=== PATIENT | male | born 1975 | race Two or more races ===

== ENCOUNTER 2017-01-31 22:45 | Inpatient (IN) | payer BC ==
[~2017-01-31] VITALS: Ht 170.2 cm; Wt 78.5 kg
[~2017-01-31 22:45] MED LIST: [UNRECOGNIZED DRUG - REMARK]
--- NOTE | 2017-01-31 22:50 | NUR ---
Patient observed to fall to the floor by car rental clerk who notified nursing staff. Staff responded to the waiting area where patient was initially assessed and determined to be breathing with good circulation. As initial assessment was being performed patient awoke and stated "I'm OK guys" and lost consciousness again. Patient assisted to wheelchair and to room 1B.
[2017-01-31] MEDS ORDERED: ASPIRIN 325 MG TABLET PO ONE (23:15)
[2017-01-31] MEDS ORDERED: NITROGLYCERIN OINT 1 GM PACKET TP ONE ×2 (23:15→23:30)
--- NOTE | 2017-01-31 23:15 | NUR ---
Pt to room via w/c and placed on monitor. Pt NSR. Pt c/o severe midsternal chest pain radiating down to abd and severe headache. Pt sts [place] when he "passed out" and "eyes rolled back in my head". EKG obtained, IV established, labs drawn and sent. Pt seen by Dr. Lawson for MSE, awaiting further orders.
[2017-01-31] MEDS ORDERED: MORPHINE SULFATE 4 MG/1 ML DISP.SYRIN IV ONE (23:30)
[2017-01-31] MEDS ORDERED: ONDANSETRON IV *ER 4 MG/2 ML VIAL IV ONE (23:30)
[2017-01-31] MEDS ORDERED: ONDANSETRON 4 MG/2 ML VIAL ONE (23:46)
[2017-01-31] MEDS ORDERED: MORPHINE SULFATE 4 MG/1 ML DISP.SYRIN ONE (23:46)
[2017-01-31 23:47] LABS: CREATININE 2.1 mg/dL (0.6-1.3); POTASSIUM 3.1 mmol/L (3.5-5.1)
--- NOTE | 2017-01-31 23:50 | NUR ---
Pt initially requested no visitor and that no one knew he was here. arrived in wr. Pt initially did not want her at bedside then changed his mind and brought back to pt's bedside. Pt medicated for discomfort, will monitor for effects of medication. Pt asked repeatedly for water, approved, pt given water. Bedside CXR obtained. Pt refusing head CT. Dr. Lawson notified. Pt repositioned for comfort.
[2017-01-31 23:52] LABS: BASOPHILS % (AUTO) 0.2 % (0.0-2.0); EOSINOPHILS # (AUTO) 0.1 K/uL (0.0-0.7); EOSINOPHILS % (AUTO) 1.1 % (0.0-7.0); HEMATOCRIT 42.1 % (40-50); LYMPHOCYTES # (AUTO) 1.4 K/UL (0.8-4.8); LYMPHOCYTES % (AUTO) 11.5 % (20.5-51.5); MEAN CORPUSCULAR HGB CONC 33 g/dL (32.0-37.0); MEAN CORPUSCULAR VOLUME 90.5 FL (82.0-92.0); MONOCYTES # (AUTO) 0.6 K/UL (0.1-1.30); MONOCYTES % (AUTO) 4.9 % (0.0-11.0); NEUTROPHILS # (AUTO) 10.1 K/UL (1.8-8.9); NEUTROPHILS % (AUTO) 82.3 % (38.5-71.5); PLATELET COUNT (AUTO) 156 K/UL (150-450); RED BLOOD CELL COUNT(AUTO) 4.66 MIL/UL (4.7-6.1); WHITE BLOOD COUNT (AUTO) 12.2 K/UL (4.0-11.2)
--- NOTE | 2017-01-31 23:55 | NUR ---
Dr. Lawson into speak with pt. Pt now agrees to head CT. Radiology notified.
[2017-02-01] VITALS (49 sets, daily range): BP systolic 95–150; BP diastolic 58–101
[2017-02-01 00:02] LABS: ETHANOL < 3 MG/DL (0-0)
--- NOTE | 2017-02-01 00:12 | NUR ---
Pt to radiology via shannen
[2017-02-01] MEDS ORDERED: NITROGLYCERIN IV 250 ML ONE (00:38)
[2017-02-01] MEDS ORDERED: POTASSIUM CHLORIDE 50 ML ONE ×2 (00:39→02:17)
[2017-02-01] MEDS ORDERED: HEPARIN SODIUM,PORCINE/PF 100 UNIT/ML, 5ML SYR IV STA (00:40)
--- NOTE | 2017-02-01 00:50 | NUR ---
Pt returned from CT via gurney. Remains NSR on monitor, resp even and unlabored. Conts to c/o 09/03 CP. Aspirin given per Dr. Lawson (initially held per Dr. Lawson's request until head CT obtained). Pt resting in position of comfort for self. Plan of care is to admit pt at this time
[2017-02-01] MEDS ORDERED: HEPARIN/D5W DRIP 500 ML IV STA (00:56)
[2017-02-01] MEDS: POTASSIUM CHLORIDE 50 ML IV SCH ×2 (00:59→02:00)
--- NOTE | 2017-02-01 00:59 | NUR ---
[facility]
--- NOTE | 2017-02-01 01:03 | NUR ---
[facility] spoke with Dr. Kennedy, on-call CARDIOLOGY.
[2017-02-01] MEDS ORDERED: ASPIRIN 325 MG TABLET ONE (01:04)
[2017-02-01] MEDS: NITROGLYCERIN IV 250 ML IV PRN ×3 (01:10→02:00)
[2017-02-01] MEDS ORDERED: IV NORMAL SALINE 500 ML BAG IV ONE (01:15)
--- NOTE | 2017-02-01 01:15 | NUR ---
Second IV established. Nitro paste removed and IV nitro infusion started, will monitor for effects of medication. Potassium infusing in second IV, pt tolerating well. Pt remains NSR on monitor. Resp even and unlabored. Sts chest discomfort is 4/10.
[2017-02-01] MEDS ORDERED: IV NS 1000 ML 1,000 ML IV PRN (01:17)
[2017-02-01] MEDS ORDERED: METOPROLOL TARTRATE 50 MG TABLET PO SCH ×2 (01:30→09:00)
[2017-02-01] MEDS ORDERED: NITROGLYCERIN IV 250 ML IV PRN ×2 (01:30→10:00)
[2017-02-01] MEDS ORDERED: MORPHINE SULFATE 2 MG/1 ML DISP.SYRIN IV PRN (01:30)
[2017-02-01] MEDS ORDERED: HEPARIN/D5W DRIP 500 ML IV PRN (01:30)
[2017-02-01] MEDS ORDERED: ONDANSETRON 4 MG/2 ML VIAL IV PRN (01:30)
[2017-02-01] MEDS ORDERED: HEPARIN SODIUM,PORCINE 5,000 UNITS/ML VIAL ONE (01:36)
[2017-02-01] MEDS ORDERED: HEPARIN/D5W DRIP 500 ML ONE (01:36)
--- NOTE | 2017-02-01 01:45 | NUR ---
No change in chest pain at this time, nitro drip increased to 15mcg. Pt remains NSR on monitor.
--- NOTE | 2017-02-01 01:47 | NUR ---
3rd IV established. Heparin bolus given and heparin drip started. Per Dr. Lawson pt to receive 1000 u/hr. Both medications double checked by VICENTA Zarate.
--- NOTE | 2017-02-01 02:00 | NUR ---
Pt c/o cp increasing to 6/10. Nitro drip increased to 20 mcg. Pt NSR on monitor, resp even and unlabored on 2 L NC. Pt admitted to CCU but will be held in ER. Report given to VICENTA Batista. Upon transfering care pt has nitro infusing in 20g R. AC at 20 mcg/hr, second bag of potassium infusing in 18g L. JAMES and heparin drip 1000 U/hr (per Dr. Lawson) in 18g L. AC.
--- NOTE | 2017-02-01 02:00 | NUR ---
Admit to ICU status. Patient remains in ED 1B as overflow
--- NOTE | 2017-02-01 03:00 | NUR ---
2nd bag KCl continued from ER now completed at this time.
[2017-02-01] MEDS: ASPIRIN 81 MG TAB.CHEW PO SCH ×2 (03:08→09:00)
--- NOTE | 2017-02-01 03:08 | NUR ---
Non-admin aspirin. Recent dose given in ER. Non-admin Lopressor due to administration of Nitro drip, titrating rate up at this time. Close BP monitoring.
--- NOTE | 2017-02-01 05:54 | NUR ---
Dr. Schwab at bedside for assessment. Updates given
[2017-02-01] MEDS ORDERED: ACETAMINOPHEN 325 MG TABLET PO PRN (06:00)
[2017-02-01] MEDS ORDERED: ACETAMINOPHEN 325 MG TABLET ONE (06:18)
--- NOTE | 2017-02-01 06:45 | NUR ---
Patient to be transferred to CCU1. Transport with ACLS protocol
--- NOTE | 2017-02-01 07:14 | NUR ---
received pt from ER DX: CHEST PAIN .pt alert ,awake and oriented . pt on nitroglycerine drip and heparin drip .no chest pain when asked but as per pt he has a headache as per ER NURSE pt had tylenol and not due yet .place pt in bed and icu monitor place and icu orientation done .continue to monitor vital sign and levels of comfort.
--- NOTE | 2017-02-01 08:10 | NUR ---
DR:NANCY CAME AND REPORT GIVEN TO MD . WITH ORDERS . AT BEDSIDE .MD SPOKED TO PTS AND PTS WITH REGARDS TO PLAN OF TREATMENT FOR NOEL
--- NOTE | 2017-02-01 08:30 | NUR ---
heparin drip stop as per YOHAN prior to NOEL.
[2017-02-01] MEDS ORDERED: BENZOCAINE 20% TOPICAL SPRAY 59.2 ML MM ONE (08:45)
[2017-02-01] MEDS ORDERED: MIDAZOLAM HCL 2 MG/2 ML VIAL IV PRN (08:45)
[2017-02-01] MEDS ORDERED: FENTANYL CITRATE 100 MCG/2 ML AMPUL IV PRN (08:45)
--- NOTE | 2017-02-01 08:50 | NUR ---
: YOGI CAME AND EVALUATED PT SPOKE WITH PT AND PTS .
[2017-02-01 09:06] LABS: CREATININE 1.7 mg/dL (0.6-1.3); POTASSIUM 3.5 mmol/L (3.5-5.1)
--- NOTE | 2017-02-01 09:10 | NUR ---
COMPLAINES OF HEADACHE AND TYLENOL NOT DUE YET DR MER AWARE NITROGLYCERINE DRIP REDUCED TO 30 MCG/MIN.CONTINUE TO MONITOR VITAL SIGNS AND LEVELS OF COMFORT.
--- NOTE | 2017-02-01 09:30 | NUR ---
DR NOWAK at bedside came and spoke with pts and explained NOEL procedure for sedation .consent sign by pt and witness .
--- NOTE | 2017-02-01 09:39 | NUR ---
NOEL PROCEDURE START TIME AND ENDED AT 954
[2017-02-01] MEDS: ESMOLOL 2.5 GM/NS 250 ML DRIP 250 ML IV PRN ×2 (10:00→14:24)
--- NOTE | 2017-02-01 10:10 | NUR ---
SALEEM AND Gisel at bedside spoke with pts and pts plan for transfer pt needs surgical intervention.
--- NOTE | 2017-02-01 10:15 | NUR ---
At this time with nursing supervisor specialty plant and intensive care unit nurse present in the unit a call sent to CNO Mr. Dallas Ambrocio with questions regarding legal coverage for ICU nurses during transportation. As stated by him "we are legally covered during transportation of patient to [facility].
--- NOTE | 2017-02-01 11:28 | NUR ---
no urinary output since 0600 :LYNN made aware no orders .
--- NOTE | 2017-02-01 11:30 | NUR ---
pt no urinary output last void is at 0600 ,informed DR:NANCY .no orders made and to continue to monitor output.
--- NOTE | 2017-02-01 11:43 | NUR ---
Patient medicated with dilaudid. Refusing morphine despite been educated on the benefits of morphine.
[2017-02-01] MEDS ORDERED: HYDROMORPHONE 1 MG/1 ML DISP.SYRIN IV ONE (11:45)
[2017-02-01] MEDS ORDERED: [UNRECOGNIZED DRUG - CODE] IV (11:59)
[2017-02-01] MEDS ORDERED: METO50TA3 PO (11:59)
[2017-02-01] MEDS ORDERED: HYDR1DIS2 IV (11:59)
[2017-02-01] MEDS ORDERED: ACET325T53 PO (11:59)
[2017-02-01] MEDS ORDERED: Morphine Sulfate Inj IV (11:59)
[2017-02-01] MEDS ORDERED: [UNRECOGNIZED DRUG - CODE] IV (11:59)
--- NOTE | 2017-02-01 12:25 | NUR ---
report given to Arabella HORN precept tel# [phone]. no bed available will continue to monitor bed availability.
--- NOTE | 2017-02-01 13:34 | NUR ---
a call from Hemant from [facility] pt have a bed bed release 7 ICU 1673.CALL BACK TEL # [phone]
--- NOTE | 2017-02-01 14:15 | NUR ---
Ambulance transfer services in the unit, and in preparation for transfer they were questioned regarding intubation equipment and if they were ACLS transport. the response was not. Nursing extension service supervisor in the unit and notified, as well as case management.
--- NOTE | 2017-02-01 14:37 | NUR ---
Called the following facilities for the transfer: 09:53 Delfin from [facility] [ ] stated that they do not have the resources for an open heart surgery and have no ICU beds available. 09:56 Called [facility] [ ] but they stated that they do not do open heart surgery. 09:58 Called [facility] [ ; ] and Caro requested for the patient's information to be faxed to them. 09:59 Spoke to Malissa from [facility] [ ; ] and she requested the patient's info. to be faxed 10:[address] Gutierrez about the situation and he stated that he will order the discharge and do his D/C Summary 10:10 Called admitting, Donald eBe, to ask for the contact number for Scottie Nevarez/[facility] - 10:13 [facility] was called and presented the case to them. 10:15 Called [facility] [ ] and was redirected to but the call was dropped 10:26 Malissa from [facility] [ ] called back to confirm the Supervisor [employer]'s phone number 10:[address] [facility] [ ] stated that they do not have an ICU bed and the patient will be needing an admitting MD 10:36 Spoke to Marina from [facility] [ ; ] who requested the patient's information to be faxed. Alexandra called [facility] and faxed the patient's information. 10:37 Thomas Franz was called and they requested the patient's information to present to their team 10:38 Kerwin called [facility] Information 10:43 Desi from [facility] [ ; ] said they have no beds available. 10:50 Spoke to Louis from [facility] [ ; ; ] and he requested the patient's information to faxed 10:52 Malissa from [facility] called back and was waiting for their surgeon to call Dr. Coughlin 11:00 Left a message to [facility] [ ] 11:01 Called [facility] and spoke to Debbi [ ; ; ] who said that they need a 11:04 Spoke to Renata from Dr. Denny ; ] and she stated that Dr. Denny is currently in surgery but requested for the patient's information to be faxed and she will present the case once he is available. Called [facility] and they requested for Peer to Peer [ ] 11:07 Roman from [facility] [ ] said that they do not do open heart surgeries 11:10 Called [facility] [ ] and they stated that they are not able to provide the care needed 11:12 Called [facility] and spoke to Salina about getting a Level 4 Transportation but she said that it is a Code 3 for them. She stated that they can provide the pump and IV but they do not have an RN available and the narcotics. 11:13 Dr. Coughlin stated he has an admitting cardiac anesthesiologist at [facility] - Dr. Mcbride 11:23 Spoke to Louis and Xena from [facility] [phone]] and they will re-open the case. 11:41 [facility] confirmed accepting physician - Dr. Graf but will still need financial clearance and bed. 12:17 Called the [facility] Bed Control [ option 2] and spoke to Hemant who confirmed that the patient is financially cleared and waiting for a bed available. 12:39 Hemant from [facility] confirmed that they have a bed and the CCU RN is currently giving a report. [facility] called and will transfer DUSTIN on Code 3. They will provide the IV and pump but [place] will provide the RN and medications. 12:40 Followed up with [facility] and spoke to Xena. She stated that they are awaiting decision from Cardio Thoracic Surgeon) 12:43 Maria C from [facility] Patient Placement [ opt. 2] stated that they still don't have a bed and is predicting that they might have one at around 4:[address] Coughlin. 12:52 Zachary from [facility] called and stated they can not accommodate the patient at this time. 13:34 Xena from CCU called and confirmed that Hemant from Patient Placement called them and said the patient will be going to 7-ICU Room# 9556. She already gave the report to [facility]. Called Salina from [facility] and she will dispatch an ambulance DUSTIN. 14:24 Salina from [facility] dispatched a BLS ambulance when an ALS was requested. Contacted their Cloud Subject Matter Expert and he will be sending an ALS ambulance DUSTIN.
--- NOTE | 2017-02-01 14:45 | NUR ---
ACLS and paramedics in the unit to transfer patient. Patient safely transfer to [facility] vitals stable. Esmolol at 200mcg/kg/min and nitroglycerine running at 35mcg/min. No c/ of pain saturation 99-100% on 2 liters NC.
--- NOTE | 2017-02-01 14:50 | NUR ---
At this time patient transfer to [facility] Teddy Teresa via ACLS ambulance accompanied by 2 ICU RNS. On both esmolol and nitroglycerine drip. Addendum: 02/01/17 at 1633 by BORIS STOVER RN no injury sustained during transfer, patient placed on 7th room 7441. Report given to cora Yepez.
[2017-02-01] MEDS ORDERED: IV NORMAL SALINE 1000 ML BAG IV ONE (17:14)
[2017-02-01] MEDS ORDERED: ESMOLOL HCL 100 MG/10 ML VIAL IV ONE (17:14)
[2017-02-01] MEDS ORDERED: PROPOFOL 200 MG/20 ML BOTTLE IV ONE (17:14)
[2017-02-01] MEDS ORDERED: ETOMIDATE 20 MG/10 ML VIAL MC ONE (17:14)
[2017-02-01] MEDS ORDERED: LIDOCAINE-MPF 2% 5 ML VIAL MC ONE (17:14)
== END 2017-02-01 17:15 | disposition short-term general hospital (02) | DRG 280 ==
LOC: ER 22:45 → CCU 02-01 02:01
PROVIDERS: ADMIT Internal Medicine; ATTEND Internal Medicine
DX: I71.01 Dissection of thoracic aorta (principal); I21.4 Non-ST elevation (NSTEMI) myocardial infarction; N17.0 Acute kidney failure with tubular necrosis; I31.3 Pericardial effusion (noninflammatory); E87.6 Hypokalemia; E78.5 Hyperlipidemia, unspecified; F17.210 Nicotine dependence, cigarettes, uncomplicated; I10 Essential (primary) hypertension; Z82.3 Family history of stroke; R73.9 Hyperglycemia, unspecified; I35.1 Nonrheumatic aortic (valve) insufficiency
CPT/HCPCS: 36415; 70030-TC; 70450; 71010; 83690; 85025; 85730; 93005; 93307; 93312; A4663; G0480; J1170; J1644; J2270; J2405; J3480; J3490; J7030; J7040

== ENCOUNTER 2018-06-02 22:42 | Emergency (ER) | payer BC, OTHER ==
[~2018-06-02] VITALS: Ht 172.7 cm; Wt 86.2 kg
[~2018-06-02 22:42] MED LIST changes: +ACET325T53 PO; +HYDR1DIS2 IV; +METO50TA16 PO; +Morphine Sulfate Inj IV; +[UNRECOGNIZED DRUG - CODE] IV; +[UNRECOGNIZED DRUG - CODE] IV; -[UNRECOGNIZED DRUG - REMARK]
--- NOTE | 2018-06-02 23:01 | NUR ---
Dr. Freeman at bedside for MSE.
--- NOTE | 2018-06-02 23:06 | NUR ---
Pt ambulated to ER with c/o fluctuating blood pressure & intermittent nose bleed x 2 weeks. Pt also c/o headache x 2 days. Pt denies chest pain/shortness of breath. Pt states has hx of aortic repair in 2017. Pt denies GI/ distress. Respirations even + unlabored. Pt placed on monitor. at bedside.
[2018-06-02] MEDS ORDERED: IV NORMAL SALINE 1000 ML BAG IV ONE (23:15)
[2018-06-02 23:37] LABS: BASOPHILS # (AUTO) 0.1 K/uL (0.0-8.0); BASOPHILS % (AUTO) 0.8 % (0.0-2.0); EOSINOPHILS % (AUTO) 0.5 % (0.0-7.0); HEMATOCRIT 39.1 % (36.7-47.1); HEMOGLOBIN 13.1 g/dL (12.5-16.3); LYMPHOCYTES # (AUTO) 2.2 K/uL (20.0-40.0); LYMPHOCYTES % (AUTO) 27.5 % (20.5-51.5); MEAN CORPUSCULAR HEMOGLOBIN 29.1 uug (23.8-33.4); MEAN CORPUSCULAR HGB CONC 33 g/dL (32.5-36.3); MEAN CORPUSCULAR VOLUME 87.2 fL (73.0-96.2); MONOCYTES # (AUTO) 0.6 K/uL (2.0-10.0); MONOCYTES % (AUTO) 7.4 % (0.0-11.0); NEUTROPHILS # (AUTO) 5.2 K/uL (1.8-8.9); NEUTROPHILS % (AUTO) 63.8 % (38.5-71.5); PLATELET COUNT (AUTO) 283 K/uL (152-348); RED BLOOD CELL COUNT(AUTO) 4.49 MIL/uL (4.06-5.63); WHITE BLOOD COUNT (AUTO) 8.1 K/uL (3.6-10.2)
[2018-06-03 00:01] LABS: POTASSIUM 3.4 mmol/L (3.5-5.1)
[2018-06-03] MEDS ORDERED: IV NORMAL SALINE 250 ML IV ONE (00:13)
[2018-06-03] MEDS ORDERED: IOHEXOL 350 100 ML INFUS..BTL ONE (00:13)
[2018-06-03] MEDS ORDERED: SWABABLE VALVE TRANSFER SET EA MC ONE (00:13)
--- NOTE | 2018-06-03 01:53 | NUR ---
Dr. Freeman speaking to on-call fellow cardiothoracic surgeon from [facility] regarding pt, Dr. Reji Morse.
[2018-06-03] MEDS ORDERED: ACETAMINOPHEN 325 MG TABLET PO ONE (02:15)
[2018-06-03] MEDS ORDERED: SILVER NITRATE APPLICATOR STICK EACH TP ONE ×2 (02:19→02:30)
[2018-06-03] MEDS ORDERED: ACETAMINOPHEN ES 500 MG TABLET ONE (02:19)
[2018-06-03] MEDS ORDERED: AMOXICILLIN-CLAVUL 875-125MG TABLET PO ONE (02:30)
--- NOTE | 2018-06-03 02:35 | NUR ---
IV removed. Catheter intact and site benign. Pressure and 4x4 gauze applied to site. No bleeding noted.
[2018-06-03] MEDS ORDERED: AMOXICILLIN-CLAVUL 875-125MG TABLET ONE (02:36)
--- NOTE | 2018-06-03 02:41 | NUR ---
Patient discharged to home in stable conditon. Written and verbal after care instructions given. Patient verbalizes understanding of instructions. Pt ambulated out of ER in steady gait with . All belongings with pt. VSS. NAD noted.
[2018-06-03 04:02] VITALS: BP 137/81
== END 2018-06-03 02:40 | disposition home or self-care (01) ==
LOC: ER 22:43
DX: R42 Dizziness and giddiness (principal); J32.9 Chronic sinusitis, unspecified; R04.0 Epistaxis; R51 Headache; I10 Essential (primary) hypertension; F17.200 Nicotine dependence, unspecified, uncomplicated; Z86.79 Personal history of other diseases of the circulatory system; Z79.891 Long term (current) use of opiate analgesic; Z79.899 Other long term (current) drug therapy
CPT/HCPCS: 30901; 36415; 70450; 71275; 80048; 84484; 85025; 85730; 93005; 96360; 99284; Q9967; 70030-TC; A4663; A9150; J7030; J7050

== ENCOUNTER 2024-03-06 23:41 | Emergency (ER) | payer OTHER ==
[~2024-03-06] VITALS: Ht 172.7 cm; Wt 68.0 kg
[2024-03-06] MEDS ORDERED: NITROGLYCERIN OINT 1 GM PACKET TP ONE (23:51)
[2024-03-06] MEDS ORDERED: ASPIRIN 81 MG TAB.CHEW ONE (23:51)
[2024-03-06] MEDS ORDERED: NITROGLYCERIN 0.4 MG/TAB BOTTLE SL ONE (23:51)
[2024-03-07] MEDS: NITROGLYCERIN 0.4 MG/TAB BOTTLE SL ONE (00:02)
[2024-03-07] MEDS: ASPIRIN 81 MG TAB.CHEW PO ONE (00:02)
[2024-03-07] MEDS ORDERED: ROSU5TAB PO (00:04)
[2024-03-07] MEDS ORDERED: EPLE25TA10 PO (00:04)
[2024-03-07] MEDS ORDERED: ASPI81TA31 PO (00:04)
[2024-03-07] MEDS ORDERED: AMLO1CAP PO (00:04)
[2024-03-07] MEDS ORDERED: ZOLP5TAB8 PO (00:04)
[2024-03-07] MEDS: NITROGLYCERIN OINT 1 GM PACKET TP ONE (00:22)
[2024-03-07 00:27] LABS: BASOPHILS # (AUTO) 0.3 K/UL (0.0-0.2); BASOPHILS % (AUTO) 3.2 % (0.0-2.0); EOSINOPHILS # (AUTO) 0.1 K/uL (0.0-0.7); HEMATOCRIT 43.8 % (36.7-47.1); HEMOGLOBIN 14.7 g/dL (12.5-16.3); LYMPHOCYTES # (AUTO) 2.6 K/uL (0.8-4.8); LYMPHOCYTES % (AUTO) 32.8 % (20.5-51.5); MEAN CORPUSCULAR HEMOGLOBIN 30.1 uug (23.8-33.4); MEAN CORPUSCULAR HGB CONC 34 g/dL (32.5-36.3); MEAN CORPUSCULAR VOLUME 89.6 fL (73.0-96.2); MONOCYTES # (AUTO) 0.4 K/uL (0.1-1.30); MONOCYTES % (AUTO) 5.3 % (0.0-11.0); NEUTROPHILS # (AUTO) 4.5 K/uL (1.8-8.9); NEUTROPHILS % (AUTO) 57.7 % (38.5-71.5); PLATELET COUNT (AUTO) 214 K/uL (152-348); RED BLOOD CELL COUNT(AUTO) 4.89 MIL/uL (4.06-5.63); WHITE BLOOD COUNT (AUTO) 7.8 K/uL (3.6-10.2)
[2024-03-07 01:02] LABS: ALANINE AMINOTRANSFERASE 25 U/L (16-63); ALBUMIN 3.9 g/dL (3.4-5.0); ALKALINE PHOSPHATASE 76 U/L (50-136); ASPARTATE AMINOTRANSFERASE 25 U/L (15-37); BILIRUBIN,DIRECT 0.1 mg/dL (0.0-0.2); BILIRUBIN,TOTAL 0.4 mg/dL (0.2-1.0); CALCIUM 9.1 mg/dL (8.5-10.1); CARBON DIOXIDE 27 mmol/L (21-32); CHLORIDE 104 mmol/L (98-107); CREATININE 1.6 mg/dL (0.6-1.3); GLUCOSE 92 mg/dL (74-106); NT-PRO BNP 40 pg/mL (0-125); POTASSIUM 3.5 mmol/L (3.5-5.1); SODIUM SERUM 144 mmol/L (136-145); TOTAL PROTEIN, SERUM 7.5 g/dL (6.4-8.2); UREA NITROGEN, BLOOD 21 mg/dL (7-18)
[2024-03-07 02:36] VITALS: BP 121/71; TEMP 98.6; O2SAT 100
== END 2024-03-07 02:36 | disposition left against medical advice (07) ==
LOC: ER 23:46
DX: R07.89 Other chest pain (principal); I25.2 Old myocardial infarction; I10 Essential (primary) hypertension; I71.00 Dissection of unspecified site of aorta; F17.210 Nicotine dependence, cigarettes, uncomplicated; Z79.82 Long term (current) use of aspirin; Z79.899 Other long term (current) drug therapy; Z88.7 Allergy status to serum and vaccine; Z91.040 Latex allergy status
CPT/HCPCS: 36415; 71045; 84484; 85025; A4606; A4663

== ENCOUNTER 2024-08-08 19:03 | Emergency (ER) | payer OTHER ==
[~2024-08-08] VITALS: Ht 170.2 cm; Wt 88.5 kg
[~2024-08-08 19:03] MED LIST changes: -ACET325T53 PO; +AMLO1CAP PO; +ASPI81TA31 PO; +EPLE25TA10 PO; -HYDR1DIS2 IV; -METO50TA16 PO; -Morphine Sulfate Inj IV; +ROSU5TAB PO; +ZOLP5TAB8 PO; -[UNRECOGNIZED DRUG - CODE] IV; -[UNRECOGNIZED DRUG - CODE] IV
[2024-08-08 19:37] LABS: BASOPHILS # (AUTO) 0.1 K/UL (0.0-0.2); EOSINOPHILS # (AUTO) 0.1 K/uL (0.0-0.7); EOSINOPHILS % (AUTO) 1.5 % (0.0-7.0); HEMATOCRIT 43.9 % (36.7-47.1); LYMPHOCYTES # (AUTO) 2.4 K/uL (0.8-4.8); LYMPHOCYTES % (AUTO) 36.8 % (20.5-51.5); MEAN CORPUSCULAR HGB CONC 34 g/dL (32.5-36.3); MONOCYTES # (AUTO) 0.4 K/uL (0.1-1.30); MONOCYTES % (AUTO) 5.9 % (0.0-11.0); NEUTROPHILS # (AUTO) 3.5 K/uL (1.8-8.9); NEUTROPHILS % (AUTO) 54.8 % (38.5-71.5); PLATELET COUNT (AUTO) 216 K/uL (152-348); RED BLOOD CELL COUNT(AUTO) 4.99 MIL/uL (4.06-5.63); RED CELL DISTRIBUTION WIDTH 14.1 % (12.1-16.2); WHITE BLOOD COUNT (AUTO) 6.5 K/uL (3.6-10.2)
[2024-08-08 19:40] LABS: CALCIUM 9.4 mg/dL (8.5-10.1); CREATININE 1.4 mg/dL (0.6-1.3); POTASSIUM 4.2 mmol/L (3.5-5.1)
[2024-08-08 19:47] LABS: ETHANOL < 3 MG/DL (0-10)
[2024-08-08 19:52] LABS: ALBUMIN 3.6 g/dL (3.4-5.0); BILIRUBIN,TOTAL 0.3 mg/dL (0.2-1.0); TOTAL PROTEIN, SERUM 7.1 g/dL (6.4-8.2)
[2024-08-08] MEDS ORDERED: NITROGLYCERIN OINT 1 GM PACKET TP ONE (20:09)
[2024-08-08] MEDS ORDERED: methylPREDNISolone SOD SUCC 125 MG/2 ML VIAL ONE (20:09)
[2024-08-08] MEDS ORDERED: diphenhydrAMINE 50 MG/1 ML VIAL ONE (20:09)
[2024-08-08] MEDS ORDERED: ASPIRIN 325 MG TABLET ONE (20:09)
[2024-08-08 20:12] LABS: *BILIRUBIN,URIN NEGATIVE (NEGATIVE); *BLOOD, URINE NEGATIVE (NEGATIVE); *CLARITY,URINE CLEAR (CLEAR); *COLOR,URINE YELLOW (YELLOW); *KETONES,URINE NEGATIVE (NEGATIVE); *PROTEIN,URINE NEGATIVE (NEGATIVE); *UROBILINOGEN,URINE 0.2 E.U./dl (NORMAL); LEUKOCYTE ESTERASE ,URINE NEGATIVE (NEGATIVE); NITRITE, URINE NEGATIVE (NEGATIVE); PH,URINE 5.5 (5.0-8.0); UGLUCOSE NEGATIVE (NEGATIVE)
[2024-08-08 20:19] LABS: *AMPHETAMINE, URINE NEGATIVE (NEGATIVE); *BARBITURATE, URINE NEGATIVE (NEGATIVE); *BENZODIAZEPINE, URINE NEGATIVE (NEGATIVE); *CANNABINOID, URINE NEGATIVE (NEGATIVE); *COCCAINE, URINE NEGATIVE (NEGATIVE); *OPIATE, URINE NEGATIVE (NEGATIVE); *PHENCYCLIDINE SCREEN,URINE NEGATIVE (NEGATIVE); FENTANYL, URINE NEGATIVE (NEGATIVE)
[2024-08-08] MEDS: ASPIRIN 325 MG TABLET PO ONE (20:22)
[2024-08-08] MEDS: methylPREDNISolone SOD SUCC 125 MG/2 ML VIAL IV ONE (20:22)
[2024-08-08] MEDS: diphenhydrAMINE 50 MG/1 ML VIAL IV ONE (20:22)
[2024-08-08] MEDS: NITROGLYCERIN OINT 1 GM PACKET TP ONE (20:22)
[2024-08-08 21:42] VITALS: BP 137/70; O2SAT 95
== END 2024-08-08 20:25 | disposition left against medical advice (07) ==
LOC: ER 19:09
DX: G45.9 Transient cerebral ischemic attack, unspecified (principal); I21.4 Non-ST elevation (NSTEMI) myocardial infarction; F17.200 Nicotine dependence, unspecified, uncomplicated; I10 Essential (primary) hypertension; Z79.82 Long term (current) use of aspirin; Z79.899 Other long term (current) drug therapy; Z86.79 Personal history of other diseases of the circulatory system; Z88.7 Allergy status to serum and vaccine; Z91.040 Latex allergy status
CPT/HCPCS: 80053; 81003; 82962; 83880; 85025; 85610; 85730; 84484; 36415; 71045; 70450; 93005; 99285; 96374; 96375; 80320; 80307; J1200; J2919; A4606; A4663; G0480